=== PATIENT | female | born 1960 | race Caucasian/White ===

== ENCOUNTER → 2017-11-20 | Outpatient (CLI) | payer SELFPAY ==
[~2017-11-20] MED LIST: CELEBREX50 MG PO; DEMEROL IM; MOTRIN800 MG PO; VICODIN ES 7501 TA1 PO
== END | disposition home or self-care (01) ==
LOC: ORTHO 03:15
DX: M25.812 Other specified joint disorders, left shoulder (principal)

== ENCOUNTER → 2020-06-23 | Outpatient (CLI) | payer OTHER | END | disposition home or self-care (01) | LOC: CARD 06-22 08:30 | PROVIDERS: ATTEND Internal Medicine Cardiovascular Disease | DX: I48.0 Paroxysmal atrial fibrillation (principal) ==

== ENCOUNTER → 2020-12-09 | Outpatient (CLI) | payer OTHER ==
[~2020-12-09] MED LIST changes: +FLECAINIDE ACE100 M1 PO; +LOPRESSOR25 MG PO; +PERCOCET 7.5-31 EACH PO; +PROZAC20 MG PO; +XARE20MG PO
== END | disposition home or self-care (01) ==
LOC: COVID19 12-08 07:59
PROVIDERS: ATTEND Ophthalmology
DX: Z01.812 Encounter for preprocedural laboratory examination (principal); Z20.822 Contact with and (suspected) exposure to COVID-19

== ENCOUNTER → 2020-12-14 | Day surgery (SDC) | payer OTHER ==
[~2020-12-14] VITALS: Ht 168.9 cm; Wt 108.9 kg
[2020-12-14 11:40] VITALS: BP 123/67
[2020-12-14 13:23] VITALS: BP 127/49
[2020-12-14 13:38] VITALS: BP 118/65
[2020-12-14 13:53] VITALS: BP 114/62
[2020-12-14 16:01] VITALS: BP 127/49
== END | disposition home or self-care (01) ==
LOC: SDC 12-08 09:30
PROVIDERS: ATTEND Ophthalmology
DX: H25.11 Age-related nuclear cataract, right eye (principal)

== ENCOUNTER → 2021-01-13 | Outpatient (CLI) | payer OTHER | END | disposition home or self-care (01) | LOC: COVID19 13:45 | PROVIDERS: ATTEND Ophthalmology | DX: Z01.812 Encounter for preprocedural laboratory examination (principal); Z20.822 Contact with and (suspected) exposure to COVID-19 ==

== ENCOUNTER → 2021-01-18 | Day surgery (SDC) | payer OTHER ==
[~2021-01-18] VITALS: Ht 167.6 cm; Wt 108.9 kg
[2021-01-18 10:07] VITALS: BP 140/72
[2021-01-18 10:52] VITALS: BP 116/83
[2021-01-18 11:07] VITALS: BP 123/71
[2021-01-18 11:21] VITALS: BP 131/73
== END | disposition home or self-care (01) ==
LOC: SDC 01-13 11:45
PROVIDERS: ATTEND Ophthalmology
DX: H25.812 Combined forms of age-related cataract, left eye (principal); I10 Essential (primary) hypertension; F41.9 Anxiety disorder, unspecified; Z96.653 Presence of artificial knee joint, bilateral; Z98.84 Bariatric surgery status; Z79.899 Other long term (current) drug therapy

== ENCOUNTER 2021-02-10 12:16 | Emergency (ER) | payer OTHER, MEDICAID ==
[~2021-02-10] VITALS: Ht 167.6 cm; Wt 108.9 kg
[2021-02-10 14:19] VITALS: BP 148/65
== END 2021-02-10 15:40 | disposition home or self-care (01) ==
LOC: ED 12:16
DX: G89.29 Other chronic pain (principal); M79.601 Pain in right arm; I48.0 Paroxysmal atrial fibrillation; Z79.899 Other long term (current) drug therapy; Z98.84 Bariatric surgery status; Z96.653 Presence of artificial knee joint, bilateral

== ENCOUNTER → 2021-03-01 | Outpatient (CLI) | payer OTHER, MEDICAID | END | disposition home or self-care (01) | LOC: MRI 02-22 10:00 | PROVIDERS: ATTEND Orthopaedic Surgery | DX: M75.111 Incomplete rotator cuff tear or rupture of right shoulder, not specified as traumatic (principal); M19.011 Primary osteoarthritis, right shoulder; M62.511 Muscle wasting and atrophy, not elsewhere classified, right shoulder ==

== ENCOUNTER 2021-03-06 16:22 | Emergency (ER) | payer OTHER, MEDICAID ==
[~2021-03-06] VITALS: Ht 170.1 cm; Wt 108.9 kg
[2021-03-06 17:41] VITALS: BP 193/89
== END 2021-03-06 21:23 | disposition home or self-care (01) ==
LOC: ED 16:22
DX: G89.29 Other chronic pain (principal); M25.511 Pain in right shoulder; I48.91 Unspecified atrial fibrillation; Z79.899 Other long term (current) drug therapy; Z98.84 Bariatric surgery status; Z96.653 Presence of artificial knee joint, bilateral

== ENCOUNTER → 2021-06-30 | Outpatient (CLI) | payer OTHER ==
[2021-06-30 14:49] LABS: BASO % 0.2 % (0.0-1.0); EOS % 0.8 % (1.0-4.0); HEMATOCRIT 41.1 % (37.0-47.0); LYMPH # 1.9 10*3/uL (1.3-4.4); LYMPH % 37.9 % (27.0-41.0); MEAN CELL VOLUME 95.1 fl (81.0-99.0); MEAN CORPUSCULAR HGB 28.9 pg (27.0-31.0); MEAN CORPUSCULAR HGB CONC 30.4 g/dl (33.0-37.0); MEAN PLATELET VOLUME 9.7 fl (9.6-12.3); MONO # 0.7 10*3/uL (0.1-1.0); MONO % 13.3 % (3.0-9.0); NEUT # 2.3 10*3/uL (2.3-7.9); PLATELET COUNT AUTOMATED 178 10*3/uL (130-400); RED BLOOD COUNT 4.32 10*6/uL (4.10-5.10); RED CELL DISTRI WIDTH 14.2 % (0-14.5)
[2021-06-30 15:18] LABS: ALBUMIN 3.5 gm/dl (3.1-4.5); ALKALINE PHOSPHATASE 103 U/L (45-117); BUN 25 mg/dl (7-24); CHLORIDE 109 mmol/L (98-107); CREATININE 1.05 mg/dL (0.55-1.02); POTASSIUM 4.3 mmol/L (3.5-5.1); SGOT/AST 27 IU/L (3-35); SGPT/ALT 38 U/L (12-78); SODIUM 140 mmol/L (136-145); TOTAL PROTEIN 7.6 gm/dL (6.4-8.2)
== END | disposition home or self-care (01) ==
LOC: LAB 14:29
PROVIDERS: ATTEND Orthopaedic Surgery
DX: S46.811D Strain of other muscles, fascia and tendons at shoulder and upper arm level, right arm, subsequent encounter (principal); X58.XXXD Exposure to other specified factors, subsequent encounter

== ENCOUNTER → 2021-09-08 | Outpatient (CLI) | payer OTHER | END | disposition home or self-care (01) | LOC: RAD 14:18 | PROVIDERS: ATTEND Internal Medicine | DX: M51.36 Other intervertebral disc degeneration, lumbar region (principal); M41.86 Other forms of scoliosis, lumbar region; M25.78 Osteophyte, vertebrae ==

== ENCOUNTER → 2021-09-22 | Outpatient (CLI) | payer OTHER | END | disposition home or self-care (01) | LOC: CT 10:43 | PROVIDERS: ATTEND Internal Medicine | DX: R91.1 Solitary pulmonary nodule (principal); I25.10 Atherosclerotic heart disease of native coronary artery without angina pectoris ==

== ENCOUNTER 2021-12-12 14:36 | Emergency (ER) | payer OTHER ==
[~2021-12-12] VITALS: Ht 167.6 cm; Wt 117.9 kg
[2021-12-12 14:52] VITALS: BP 102/56
== END 2021-12-12 18:42 | disposition left against medical advice (07) ==
LOC: ED 14:36
DX: Z53.21 Procedure and treatment not carried out due to patient leaving prior to being seen by health care provider (principal)

== ENCOUNTER 2021-12-17 05:49 | Emergency (ER) | payer OTHER ==
[~2021-12-17] VITALS: Ht 167.6 cm; Wt 117.9 kg
[2021-12-17 06:11] VITALS: BP 124/72
[2021-12-17] MEDS ORDERED: Percocet 325 MG1 TAB PO (06:13)
[2021-12-17] MEDS ORDERED: TIZANIDINE HCL4 MG PO (06:14)
== END 2021-12-17 08:44 | disposition home or self-care (01) ==
LOC: ED 05:49
DX: R07.81 Pleurodynia (principal); M25.572 Pain in left ankle and joints of left foot; M79.672 Pain in left foot

== ENCOUNTER → 2022-05-22 | Outpatient (CLI) | payer OTHER ==
[~2022-05-22] MED LIST changes: +Percocet 325 MG1 TAB PO; +TIZANIDINE HCL4 MG PO
== END | disposition home or self-care (01) ==
LOC: LAB 14:48
PROVIDERS: ATTEND Family Medicine
DX: I48.91 Unspecified atrial fibrillation (principal)

== ENCOUNTER → 2023-04-25 | Outpatient (CLI) | payer OTHER | END | disposition home or self-care (01) | LOC: CARD 14:59 | PROVIDERS: ATTEND Internal Medicine Cardiovascular Disease | DX: I51.7 Cardiomegaly (principal) ==

== ENCOUNTER → 2024-12-04 | Outpatient (CLI) | payer OTHER ==
[2024-12-04 09:45] LABS: BASO % 0.2 % (0.0-1.0); EOS # 0.1 10*3/uL (0.0-0.4); HEMATOCRIT 39.6 % (37.0-47.0); MEAN CELL VOLUME 95.4 fl (81.0-99.0); MEAN CORPUSCULAR HGB 29.9 pg (27.0-31.0); MEAN PLATELET VOLUME 9.8 fl (9.6-12.3); MONO # 0.5 10*3/uL (0.1-1.0); MONO % 8.7 % (3.0-9.0); NEUT # 3.2 10*3/uL (2.3-7.9); NEUT % 61.4 % (47.0-73.0); PLATELET COUNT AUTOMATED 189 10*3/uL (130-400); RED BLOOD COUNT 4.15 10*6/uL (4.10-5.10); RED CELL DISTRI WIDTH 13.3 % (0-14.5); WHITE BLOOD COUNT 5.2 10*3/uL (4.8-10.8)
[2024-12-04 09:46] LABS: MEAN CORPUSCULAR HGB CONC 31.3 g/dl (33.0-37.0)
[2024-12-04 10:23] LABS: ALKALINE PHOSPHATASE 107 U/L (46-116); BUN 21 mg/dl (9-23); CHLORIDE 108 mmol/L (98-107); CHOLESTEROL 186 mg/dL (<200); LDL CHOLESTEROL 117 mg/dL (9-159); POTASSIUM 4.5 mmol/L (3.4-5.1); SGPT/ALT 16 U/L (5-49); TOTAL PROTEIN 7.4 gm/dL (6.0-8.0); TRIGLYCERIDES 124 mg/dl (<150)
== END | disposition home or self-care (01) ==
LOC: LAB 09:06
PROVIDERS: ATTEND Internal Medicine
DX: I48.91 Unspecified atrial fibrillation (principal)